=== PATIENT | female | born 1970 | race Asian ===

== ENCOUNTER 2020-09-07 15:03 | Emergency (ER) | payer OTHER ==
[2020-09-07 15:11] VITALS: BP 136/74
[2020-09-07] MEDS ORDERED: TETANUS/DIPHTHERIA/PERTUSSIS 0.5 ML SYRINGE IM ONE (15:26)
[2020-09-07] MEDS ORDERED: ROPIVACAINE 0.5% PF 20 ML AMPULE SUBQ STA (15:31)
--- NOTE | 2020-09-07 15:56 | XRAY Report ---
PROCEDURE: Finger(s) RT INDICATIONS: R ring finger crush injury TECHNIQUE: AP hand, 3 views of the right finger(s) acquired. COMPARISON: None. FINDINGS: Mildly displaced fracture of the distal tuft of the ring finger. Incidentally noted marginal lucency seen projecting at the third MCP joint. Associated soft tissue swelling IMPRESSION: Mildly displaced fracture involving the ring finger distal tuft with associated soft tissue swelling. Incidentally noted lucency seen at the third metacarpal head possible chronic erosion versus cyst. Reviewed by: Bassam Hathaway MD on 09/07/2020 3:54 PM PST Approved by: Bassam Hathaway MD on 09/07/2020 3:54 PM PST Station ID: [id number]
[2020-09-07] MEDS ORDERED: cephALEXin 250 MG CAPSULE PO STA (16:03)
--- NOTE | 2020-09-07 16:07 | ED Physician Documentation ---
PD HPI UPPER EXT INJURY - Stated complaint Stated Complaint: R HAND INJURY - Chief complaint Chief Complaint: Laceration - History obtained from History obtained from: Patient - History of Present Illness Location: Right, Finger (4th digit) Type of injury: Crush (4th digit, caught on lawnmower) Where injury occurred: Home Timing - onset: How many hours ago (1) Timing - duration: Hours (1) Improved by: Rest Worsened by: Moving, Palpating Associated symptoms: No: Weakness, Numbness, Tingling, Swelling Contributing factors: No: Anticoagulated Recently seen: Not recently seen - Additonal information Additional information: pt is right handed. unknown last Td. Review of Systems Constitutional: denies: Fever, Chills Skin: denies: Rash PD PAST MEDICAL HISTORY - Past Medical History Past Medical History: Yes Cardiovascular: Hypertension - Past Surgical History Past Surgical History: Yes - Present Medications Home Medications: Ambulatory Orders Medication Instructions Recorded Confirmed amLODIPine [Norvasc] 5 mg PO DAILY 09/07/20 09/07/20 cephALEXin [Keflex] 500 mg PO Q6H #28 cap 09/07/20 - Allergies Allergies/Adverse Reactions: Allergies Allergy/AdvReac Type Severity Reaction Status Date / Time No Known Drug Allergies Allergy Verified 09/07/20 15:08 - Social History Does the pt smoke?: Yes Smoking Status: Current every day smoker - Immunizations Immunizations: TDAP >10years/unknown PD ED PE NORMAL - Vitals Vital signs reviewed: Yes - General General: Alert and oriented X 3, No acute distress - HEENT HEENT: Moist mucous membranes - Derm Derm: Warm and dry - Neuro Neuro: Alert and oriented X 3 - Psych Psych: Normal mood, Normal affect PD ED PE EXPANDED - Extremities FILI UE/Hands Visual: 1 - laceration (The nailbed is now on top of the distal aspect of the finger. There is a small laceration on either side of the skin. There is also a small avulsion of skin. Neurovascularly intact. No subungual hematoma.), swelling, tenderness Results - Vitals Vitals: Vital Signs - 24 hr 09/07/20 15:08 Temperature 36.4 C L Heart Rate 71 Respiratory 18 Rate Blood Pressure 136/74 H O2 Saturation 100 Oxygen O2 Source Room air - Rads (name of study) R finger xray Radiology: Prelim report reviewed, EMP read contemporaneously, See rad report Procedures - Laceration (location) R ring finger Length in cm: 0.2 Wound type: Irregular Neurovascular status: Sensory intact, Motor intact, Vascular intact Tendon involvement: Tendon intact Anesthesia: OTH (ropivicaine 0.5) Wound preparation: Irrigated copiously NS Skin layer closure: Dermabond Other: Patient tolerated well, No complications, Neurovascular intact, Tetanus booster given (tdap) PD MEDICAL DECISION MAKING - ED course Complexity details: reviewed results, re-evaluated patient, considered differential, d/w patient ED course: 50-year-old female with a right ring finger injury. After anesthetizing the finger with 0.5% ropivacaine, the nailbed was placed back under the nail fold. Dermabond was applied to keep the edges together. There was not a laceration that was suturable. Patient placed in an extension finger splint. She is visiting from out of town and will follow up with her orthopedist. We will place her on Keflex as well. Warnings of infection and instructions on wound care given at bedside. Also counseled on how to minimize scarring. Patient counseled regarding signs and symptoms for which I believe and urgent re- evaluation would be necessary. Patient with good understanding of and agreement to plan and is comfortable going home at this time This document was made in part using voice recognition software. While efforts are made to proofread this document, sound alike and grammatical errors may occur. IMPRESSION: Mildly displaced fracture involving the ring finger distal tuft with associated soft tissue swelling. Incidentally noted lucency seen at the third metacarpal head possible chronic erosion versus cyst. Departure - Departure Disposition: 01 Home, Self Care Clinical Impression: Finger fracture, right Qualifiers: Encounter type: initial encounter Finger: ring finger Fracture type: open Phalanx: distal Fracture alignment: displaced Qualified Code(s): S62.634B - Displaced fracture of distal phalanx of right ring finger, initial encounter for open fracture Nailbed laceration, finger Qualifiers: Encounter type: initial encounter Qualified Code(s): S61.319A - Laceration without foreign body of unspecified finger with damage to nail, initial en counter Condition: Good Instructions: ED Fx Finger Open, ED Laceration Hand Follow-Up: your,doctor in 1 week [Other] Prescriptions: cephALEXin [Keflex] 500 mg PO Q6H #28 cap Comments: You will need to have your right hand rechecked with your doctor, or likely an orthopedist (bone doctor) in 1 week. This is to ensure normal healing. You do have a fracture in your finger. You had a nailbed laceration as well that was repaired. You need to stay in the splint until released by your doctor. Return if you notice redness, swelling or drainage from the wound. Mildly displaced fracture involving the ring finger distal tuft with associated soft tissue swelling. Forms: Activity restrictions Discharge Date/Time: 09/07/20 16:15
== END 2020-09-07 16:15 | disposition home or self-care (01) ==
LOC: ED 15:03
DX: S62.634B Displaced fracture of distal phalanx of right ring finger, initial encounter for open fracture (principal); W23.0XXA Caught, crushed, jammed, or pinched between moving objects, initial encounter; Y92.009 Unspecified place in unspecified non-institutional (private) residence as the place of occurrence of the external cause; Z23 Encounter for immunization; I10 Essential (primary) hypertension; F17.200 Nicotine dependence, unspecified, uncomplicated
CPT/HCPCS: 11760; 12001; 73140; 90471; 90715; 99282; 99283; A9270